=== PATIENT | male | born 1965 | race Caucasian/White ===

== ENCOUNTER 2016-04-11 02:17 | Emergency (ER) | payer BC ==
[~2016-04-11] VITALS: Ht 185.4 cm; Wt 117.8 kg
[~2016-04-11 02:17] MED LIST: ASCORBIC ACID500 M3 PO; B COMPLETE1 EACH PO; CHANTIX PO; CLONIDINE HCL0.1 MG PO; DIAZEPAM PO; EFFEXOR XR150 MG PO; EFFEXOR100 MG PO; GEODON40 MG PO; NAPROXEN500 MG PO; RITALIN LA40 MG PO; TOPAMAX200 MG PO; ULTRAM50 MG PO
[2016-04-11 02:22] VITALS: BP 138/112
[2016-04-11 03:26] LABS: HEMATOCRIT 44.3 % (38.0-50.0); MCH 26.4 PG (29.0-34.0); MCHC 34.8 G/DL (30.0-36.0); MEAN PLAT.VOLUME 9.8 uM^3 (9.0-12.4); PLATELET COUNT 446 K/uL (156-360); RBC DIS.WIDTH-CV 14.7 % (11.8-14.6); RBC DIS.WIDTH-SD 39.8 % (39-53); RED BLOOD COUNT 5.83 M/uL (4.00-5.50); WHITE BLOOD COUNT 13.8 K/uL (4.1-10.2)
[2016-04-11 03:42] LABS: CHLORIDE 105 mEq/L (99-109); POTASSIUM 3.8 mEq/L (3.7-5.4); SODIUM 139 mEq/L (136-147)
[2016-04-11 03:44] LABS: GLUCOSE 125 mg/dL (70-99)
[2016-04-11 03:45] LABS: ANION GAP 11 MEQ/L (2-14)
[2016-04-11 03:47] LABS: GFR ESTIMATE (CALCULATED) 53 mL/min/
[2016-04-11 03:48] LABS: TROP-I INTERPRETATION NEGATIVE; TROPONIN-I 0.04 ng/mL (0.0-0.30); UREA NITROGEN (BUN) 17 mg/dL (9-23)
== END 2016-04-11 10:50 | disposition left against medical advice (07) ==
LOC: EME 02:17
DX: R06.02 Shortness of breath (principal); Z53.21 Procedure and treatment not carried out due to patient leaving prior to being seen by health care provider
CPT/HCPCS: 71020; 80048; 84484; 85027; 93005

== ENCOUNTER 2016-04-25 16:25 | Emergency (ER) | payer BC ==
[~2016-04-25] VITALS: Ht 185.4 cm; Wt 119.5 kg
[2016-04-25 17:46] LABS: HEMATOCRIT 42.2 % (38.0-50.0); MCH 25.8 PG (29.0-34.0); MCHC 34.1 G/DL (30.0-36.0); MCV 75.6 FL (86-99); MEAN PLAT.VOLUME 9.9 uM^3 (9.0-12.4); PLATELET COUNT 425 K/uL (156-360); RBC DIS.WIDTH-CV 14.5 % (11.8-14.6); RBC DIS.WIDTH-SD 39.5 % (39-53); RED BLOOD COUNT 5.58 M/uL (4.00-5.50); WHITE BLOOD COUNT 10.8 K/uL (4.1-10.2)
[2016-04-25 18:03] LABS: CHLORIDE 105 mEq/L (99-109); POTASSIUM 4.4 mEq/L (3.7-5.4); SODIUM 141 mEq/L (136-147)
[2016-04-25 18:06] LABS: GLUCOSE 102 mg/dL (70-99)
[2016-04-25 18:07] LABS: ANION GAP 13 MEQ/L (2-14)
[2016-04-25 18:08] LABS: TOTAL BILIRUBIN 2.1 mg/dL (0.0-1.0)
[2016-04-25 18:09] LABS: ALKALINE PHOSPHATASE 56 IU/L (3-129); GFR ESTIMATE (CALCULATED) 49 mL/min/
[2016-04-25 18:10] LABS: UREA NITROGEN (BUN) 18 mg/dL (9-23)
[2016-04-25 18:37] LABS: LIPASE 6 U/L (1.0-51.0)
[2016-04-25 19:54] LABS: ADD MIUA? YES; BILIRUBIN SMALL; BLOOD NEGATIVE; COLOR YELLOW ((YELLOW)); GLUCOSE (STRIP) NEGATIVE; KETONES TRACE; LEUKOCYTES LARGE; NITRITE NEGATIVE; PROTEIN (STRIP) TRACE; SPECIFIC GRAVITY 1.028 (1.000-1.030); UROBILINOGEN 0.2 MG/DL (0.2-1.0)
[2016-04-25 21:08] LABS: BACTERIA 2+; CASTS NONE SEEN /LPF; CRYSTALS NONE SEEN; EPITHELIAL CELLS 2+; MUCUS NONE SEEN; RED BLOOD CELLS 0-5 /HPF (0-5); UCUL ADDED? YES; WHITE BLOOD CELLS 15-20 /HPF (0-5)
[2016-04-25 21:25] LABS: DIRECT BILIRUBIN 0.7 mg/dL (0.0-0.3)
[2016-04-25] MEDS ORDERED: PERCOCET 5/31 TABLET PO (21:58)
[2016-04-25] MEDS ORDERED: CIPRO500 MG PO (21:58)
[2016-04-25] MEDS ORDERED: MOTRIN600 MG PO (21:59)
[2016-04-25] MEDS ORDERED: ULTRACET1 TABLET PO (21:59)
[2016-04-25] MEDS ORDERED: ZOFRAN ODT4 MG PO (22:01)
[2016-04-25 23:23] VITALS: BP 138/102
== END 2016-04-25 23:28 | disposition home or self-care (01) ==
LOC: EME 16:25
DX: K80.20 Calculus of gallbladder without cholecystitis without obstruction (principal); E80.6 Other disorders of bilirubin metabolism; N39.0 Urinary tract infection, site not specified; J45.909 Unspecified asthma, uncomplicated; F31.9 Bipolar disorder, unspecified; G89.29 Other chronic pain; I10 Essential (primary) hypertension; Z87.891 Personal history of nicotine dependence
CPT/HCPCS: 74176; 76705; 80053; 81003; 82248; 83690; 85027; 87086; 99281; 99285; J1885; J3010

== ENCOUNTER 2016-05-01 11:24 | Day surgery (SDC) | payer BC ==
[~2016-05-01] VITALS: Ht 185.4 cm; Wt 133.2 kg
[~2016-05-01 11:24] MED LIST changes: +CIPRO500 MG PO; +MOTRIN600 MG PO; +PERCOCET 5/31 TABLET PO; +ULTRACET1 TABLET PO; +ZOFRAN ODT4 MG PO
[2016-05-01 12:29] LABS: ADD MIUA? NO; BILIRUBIN SMALL; BLOOD NEGATIVE; GLUCOSE (STRIP) NEGATIVE; KETONES NEGATIVE; LEUKOCYTES NEGATIVE; NITRITE NEGATIVE; PROTEIN (STRIP) 30; SPECIFIC GRAVITY 1.037 (1.000-1.030); UCUL ADDED? NO
[2016-05-01 12:31] LABS: COLOR DK YELLOW ((YELLOW))
[2016-05-01 12:40] LABS: HEMATOCRIT 39.3 % (38.0-50.0); MCH 25.7 PG (29.0-34.0); MCHC 33.8 G/DL (30.0-36.0); MEAN PLAT.VOLUME 9.8 uM^3 (9.0-12.4); PLATELET COUNT 443 K/uL (156-360); RBC DIS.WIDTH-SD 40.7 % (39-53); RED BLOOD COUNT 5.17 M/uL (4.00-5.50); WHITE BLOOD COUNT 11.2 K/uL (4.1-10.2)
[2016-05-01 12:52] LABS: CHLORIDE 102 mEq/L (99-109); POTASSIUM 3.8 mEq/L (3.7-5.4); SODIUM 136 mEq/L (136-147)
[2016-05-01 12:55] LABS: GLUCOSE 102 mg/dL (70-99)
[2016-05-01 12:56] LABS: ANION GAP 13 MEQ/L (2-14)
[2016-05-01 12:58] LABS: ALKALINE PHOSPHATASE 57 IU/L (3-129); GFR ESTIMATE (CALCULATED) 57 mL/min/
[2016-05-01 12:59] LABS: UREA NITROGEN (BUN) 17 mg/dL (9-23)
[2016-05-01 13:02] LABS: LIPASE 5 U/L (1.0-51.0)
[2016-05-01 16:22] LABS: DIRECT BILIRUBIN 0.8 mg/dL (0.0-0.3)
[2016-05-01] MEDS ORDERED: GEODON60 MG PO (16:36)
[2016-05-01] MEDS ORDERED: ASPIR 8181 M1 PO (16:37)
[2016-05-01] MEDS ORDERED: NICODERM CQ1 EAC1 TD (16:38)
[2016-05-01 23:20] VITALS: BP 127/93
[2016-05-02] VITALS: BP 127/93
[2016-05-02 03:44] VITALS: BP 120/72
[2016-05-02 06:09] LABS: HEMATOCRIT 38.5 % (38.0-50.0); MCH 25.1 PG (29.0-34.0); MCHC 31.9 G/DL (30.0-36.0); MCV 78.6 FL (86-99); MEAN PLAT.VOLUME 9.7 uM^3 (9.0-12.4); PLATELET COUNT 316 K/uL (156-360); RBC DIS.WIDTH-CV 14.8 % (11.8-14.6); RBC DIS.WIDTH-SD 42.4 % (39-53); WHITE BLOOD COUNT 9.8 K/uL (4.1-10.2)
[2016-05-02 06:39] LABS: ALKALINE PHOSPHATASE 44 IU/L (3-129); ANION GAP 7 MEQ/L (2-14); CHLORIDE 104 MEQ/L (99-109); GFR ESTIMATE (CALCULATED) 49 mL/min/; GLUCOSE 109 mg/dL (70-99); MAGNESIUM 1.8 mg/dl (1.3-2.7); POTASSIUM 4.4 MEQ/L (3.7-5.4); SAMPLE HEMOLYSIS CHECK 0; SAMPLE ICTERIC CHECK 0; SAMPLE LIPEMIA CHECK 0; SODIUM 137 MEQ/L (136-147); UREA NITROGEN (BUN) 17 mg/dL (9-23)
[2016-05-02 06:48] LABS: TOTAL BILIRUBIN 1.8 MG/DL (0.0-1.0)
[2016-05-02 07:43] VITALS: BP 124/83
[2016-05-02] MEDS ORDERED: PERCOCET 5/31 TABLET PO (09:05)
[2016-05-02 10:12] LABS: ADD MIUA? YES; BILIRUBIN NEGATIVE; BLOOD TRACE; COLOR DK YELLOW ((YELLOW)); GLUCOSE (STRIP) NEGATIVE; KETONES NEGATIVE; LEUKOCYTES NEGATIVE; NITRITE NEGATIVE; PH, URINE 5.5 (5-8); PROTEIN (STRIP) TRACE; SPECIFIC GRAVITY 1.027 (1.000-1.030)
[2016-05-02 10:32] LABS: BACTERIA NONE SEEN; EPITHELIAL CELLS RARE; PATHOLOGICAL CAST NONE SEEN; SMALL ROUND CELL NONE SEEN; YEAST-LIKE CELL NONE SEEN
[2016-05-02 10:52] LABS: AMORPHOUS URATES CRYSTALS 4+; CASTS NONE SEEN /LPF; CRYSTALS PRESENT; MUCUS NONE SEEN; RED BLOOD CELLS NONE SEEN /HPF (0-5); WHITE BLOOD CELLS 0-5 /HPF (0-5)
== END 2016-05-02 15:14 | disposition home or self-care (01) ==
LOC: EME 11:24 → SDC 19:31 → 3EAST 21:50 → 2SOUTH 21:50 → 3EAST 23:42
PROVIDERS: Physician Assistant Surgical; Surgery
DX: K80.10 Calculus of gallbladder with chronic cholecystitis without obstruction (principal); K42.9 Umbilical hernia without obstruction or gangrene; E86.0 Dehydration; R74.0 Nonspecific elevation of levels of transaminase and lactic acid dehydrogenase [LDH]; D72.829 Elevated white blood cell count, unspecified; I10 Essential (primary) hypertension; J45.909 Unspecified asthma, uncomplicated; R00.0 Tachycardia, unspecified
CPT/HCPCS: 76705; 80053; 81003; 82248; 83690; 83735; 84100; 85027; 87040; 88304; 94799; 99281; 99285; G0378; J0330; J1100; J1170; J1335; J2250; J2270; J2405; J2543; J2710; J3010; J7030; J7050; J7120

== ENCOUNTER 2016-05-13 21:03 | Inpatient (IN) | payer BC ==
[~2016-05-13] VITALS: Ht 185.4 cm; Wt 121.2 kg
[~2016-05-13 21:03] MED LIST changes: +ASPIR 8181 M1 PO; +GEODON60 MG PO; +NICODERM CQ1 EAC1 TD
[2016-05-13 22:56] LABS: HEMATOCRIT 40.9 % (38.0-50.0); MCH 25.1 PG (29.0-34.0); MCHC 32.5 G/DL (30.0-36.0); MCV 77.2 FL (86-99); RBC DIS.WIDTH-CV 15.3 % (11.8-14.6); RBC DIS.WIDTH-SD 42.3 % (39-53); WHITE BLOOD COUNT 10.4 K/uL (4.1-10.2)
[2016-05-13 22:58] LABS: CHLORIDE 104 mEq/L (99-109); MEAN PLAT.VOLUME 9.5 uM^3 (9.0-12.4); POTASSIUM 4.5 mEq/L (3.7-5.4); SODIUM 139 mEq/L (136-147)
[2016-05-13 22:59] LABS: PLATELET COUNT 434 K/uL (156-360)
[2016-05-13 23:00] LABS: GLUCOSE 104 mg/dL (70-99)
[2016-05-13 23:01] LABS: ANION GAP 8 MEQ/L (2-14)
[2016-05-13 23:02] LABS: TOTAL BILIRUBIN 1.3 mg/dL (0.0-1.0)
[2016-05-13 23:03] LABS: ALKALINE PHOSPHATASE 65 IU/L (3-129)
[2016-05-13 23:04] LABS: GFR ESTIMATE (CALCULATED) 53 mL/min/
[2016-05-13 23:05] LABS: UREA NITROGEN (BUN) 20 mg/dL (9-23)
[2016-05-13 23:07] LABS: LIPASE 22 U/L (1.0-51.0)
[2016-05-13 23:11] LABS: CREATINE KINASE 60 IU/L (1-294)
[2016-05-13 23:30] LABS: TROP-I INTERPRETATION NEGATIVE; TROPONIN-I 0.02 ng/mL (0.0-0.30)
[2016-05-14 00:23] LABS: ADD MIUA? NO; BILIRUBIN NEGATIVE; BLOOD NEGATIVE; COLOR YELLOW ((YELLOW)); GLUCOSE (STRIP) NEGATIVE; KETONES NEGATIVE; LEUKOCYTES NEGATIVE; NITRITE NEGATIVE; PH, URINE 6.5 (5-8); PROTEIN (STRIP) NEGATIVE; SPECIFIC GRAVITY 1.038 (1.000-1.030); UCUL ADDED? NO
[2016-05-14] MEDS ORDERED: Z-SLEEP25 MG PO (00:49)
[2016-05-14 06:17] LABS: TROP-I INTERPRETATION NEGATIVE; TROPONIN-I 0.02 ng/mL (0.0-0.30)
[2016-05-14 12:36] LABS: TROP-I INTERPRETATION NEGATIVE; TROPONIN-I 0.01 ng/mL (0.0-0.30)
[2016-05-14 13:37] VITALS: BP 124/93
[2016-05-14 15:52] VITALS: BP 122/89
[2016-05-14 19:30] VITALS: BP 133/94
[2016-05-14 23:50] VITALS: BP 124/98
[2016-05-15 03:57] VITALS: BP 132/101
[2016-05-15 08:38] VITALS: BP 126/97
[2016-05-15 09:19] LABS: BASOPHIL COUNT 0.1 K/uL (0-0.1); EOSINOPHIL COUNT 0.5 K/uL (0-0.3); HEMATOCRIT 39.6 % (38.0-50.0); IMMATURE GRANULOCYTE (%) 0.1 % (0.0-0.7); LYMPHOCYTE COUNT 3.2 K/uL (1.0-2.8); MCH 25.3 PG (29.0-34.0); MCHC 33.6 G/DL (30.0-36.0); MCV 75.4 FL (86-99); MEAN PLAT.VOLUME 9.7 uM^3 (9.0-12.4); MONOCYTE (%) 9.7 % (3-12); NEUTROPHIL (%) 53.8 % (45-76); NEUTROPHIL COUNT 5.8 K/uL (1.8-6.4); PLATELET COUNT 458 K/uL (156-360); RBC DIS.WIDTH-CV 15.2 % (11.8-14.6); RED BLOOD COUNT 5.25 M/uL (4.00-5.50); WHITE BLOOD COUNT 10.7 K/uL (4.1-10.2)
[2016-05-15 09:37] LABS: ANION GAP 13 MEQ/L (2-14); CHLORIDE 105 MEQ/L (99-109); POTASSIUM 3.6 MEQ/L (3.7-5.4); SAMPLE HEMOLYSIS CHECK 0; SAMPLE ICTERIC CHECK 0; SAMPLE LIPEMIA CHECK 0; SODIUM 141 MEQ/L (136-147)
[2016-05-15 09:43] LABS: ALKALINE PHOSPHATASE 52 IU/L (3-129); GFR ESTIMATE (CALCULATED) 57 mL/min/; GLUCOSE 100 mg/dL (70-99); UREA NITROGEN (BUN) 16 mg/dL (9-23)
[2016-05-15 11:28] VITALS: BP 123/92
[2016-05-15 16:30] VITALS: BP 129/98
[2016-05-15 21:10] VITALS: BP 127/83
[2016-05-16 00:35] VITALS: BP 127/83
[2016-05-16 06:27] VITALS: BP 125/83
[2016-05-16 07:52] LABS: ANION GAP 11 MEQ/L (2-14); CHLORIDE 103 MEQ/L (99-109); GFR ESTIMATE (CALCULATED) 53 mL/min/; GLUCOSE 75 mg/dL (70-99); SAMPLE HEMOLYSIS CHECK 0; SAMPLE ICTERIC CHECK 0; SAMPLE LIPEMIA CHECK 0; SODIUM 139 MEQ/L (136-147); UREA NITROGEN (BUN) 19 mg/dL (9-23)
[2016-05-16 07:59] LABS: POTASSIUM 4.6 MEQ/L (3.7-5.4)
[2016-05-16 13:13] VITALS: BP 122/82
[2016-05-16 13:14] VITALS: BP 122/89
[2016-05-16 17:46] VITALS: BP 133/81
[2016-05-16 20:12] VITALS: BP 116/78
[2016-05-17 00:18] VITALS: BP 100/68
[2016-05-17 04:21] VITALS: BP 105/62
[2016-05-17 06:37] LABS: BASOPHIL COUNT 0.1 K/uL (0-0.1); EOSINOPHIL (%) 5.2 % (0-5); EOSINOPHIL COUNT 0.5 K/uL (0-0.3); HEMATOCRIT 38.5 % (38.0-50.0); IMMATURE GRANULOCYTE (%) 0.1 % (0.0-0.7); LYMPHOCYTE COUNT 2.5 K/uL (1.0-2.8); MCHC 32.5 G/DL (30.0-36.0); MCV 76.8 FL (86-99); MEAN PLAT.VOLUME 10.2 uM^3 (9.0-12.4); MONOCYTE (%) 10.6 % (3-12); MONOCYTE COUNT 0.9 K/uL (0-0.8); NEUTROPHIL (%) 54.7 % (45-76); NEUTROPHIL COUNT 4.8 K/uL (1.8-6.4); PLATELET COUNT 394 K/uL (156-360); RBC DIS.WIDTH-CV 15.5 % (11.8-14.6); RBC DIS.WIDTH-SD 42.6 % (39-53); RED BLOOD COUNT 5.01 M/uL (4.00-5.50); WHITE BLOOD COUNT 8.8 K/uL (4.1-10.2)
[2016-05-17 07:03] LABS: ALKALINE PHOSPHATASE 51 IU/L (3-129); ANION GAP 11 MEQ/L (2-14); CHLORIDE 104 MEQ/L (99-109); GFR ESTIMATE (CALCULATED) 57 mL/min/; GLUCOSE 76 mg/dL (70-99); POTASSIUM 4.5 MEQ/L (3.7-5.4); SAMPLE HEMOLYSIS CHECK 0; SAMPLE ICTERIC CHECK 0; SAMPLE LIPEMIA CHECK 0; SODIUM 138 MEQ/L (136-147); TOTAL BILIRUBIN 2.2 MG/DL (0.0-1.0); UREA NITROGEN (BUN) 20 mg/dL (9-23)
[2016-05-17 09:00] VITALS: BP 112/83
[2016-05-17 12:00] VITALS: BP 101/68
[2016-05-17] MEDS ORDERED: CARVEDILOL6.25 MG PO (16:16)
[2016-05-17] MEDS ORDERED: LISINOPRIL2.5 MG PO (16:17)
[2016-05-17] MEDS ORDERED: FUROSEMIDE40 MG PO (16:17)
[2016-05-17] MEDS ORDERED: K-DUR20 MEQ PO (16:18)
[2016-05-17 18:25] VITALS: BP 103/75
== END 2016-05-17 17:56 | disposition home or self-care (01) | DRG 292 ==
LOC: EME 21:03 → 4EAST 05-14 04:37 → EDOF 05-14 04:37 → 4EAST 05-14 13:05
PROVIDERS: Emergency Medicine; Internal Medicine; Internal Medicine Cardiovascular Disease; Student in an Organized Health Care Education/Training Program
DX: I50.23 Acute on chronic systolic (congestive) heart failure (principal); I13.0 Hypertensive heart and chronic kidney disease with heart failure and stage 1 through stage 4 chronic kidney disease, or unspecified chronic kidney disease; I31.3 Pericardial effusion (noninflammatory); I42.0 Dilated cardiomyopathy; R18.8 Other ascites; I11.0 Hypertensive heart disease with heart failure; N18.3 Chronic kidney disease, stage 3 (moderate); G89.29 Other chronic pain; R94.31 Abnormal electrocardiogram [ECG] [EKG]; G89.18 Other acute postprocedural pain; R06.00 Dyspnea, unspecified; G47.33 Obstructive sleep apnea (adult) (pediatric); Z87.891 Personal history of nicotine dependence; F31.9 Bipolar disorder, unspecified; E78.5 Hyperlipidemia, unspecified
CPT/HCPCS: 71020; 71275; 74177; 80048; 80053; 81003; 82140; 82550; 83605; 83690; 83880; 84484; 85025; 85027; 87040; 93005; 93306; 99281; 99285; J1644; J1940; J2405; J7030; S0028